=== PATIENT | male | born 1995 | race Caucasian/White ===

== ENCOUNTER → 2023-07-07 | Outpatient (REF) | LOC: M EMP 09:37 | PROVIDERS: ATTEND Family Medicine | DX: Z11.52 Encounter for screening for COVID-19 (principal) ==

== ENCOUNTER → 2024-02-29 | Outpatient (REF) | LOC: M EMP 07:58 | PROVIDERS: ATTEND Family Medicine | DX: Z11.52 Encounter for screening for COVID-19 (principal) ==

== ENCOUNTER → 2024-08-13 | Outpatient (REF) | payer BC ==
[2024-08-13 19:12] LABS: RSV AMPLIFICATION NEGATIVE (NEGATIVE)
== END ==
LOC: M LAB REF 17:33
PROVIDERS: ATTEND Physician Assistant Medical
DX: R52 Pain, unspecified (principal)

== ENCOUNTER → 2024-09-25 | Outpatient (CLI) | payer BC | LOC: M RAD 14:02 | PROVIDERS: ATTEND Physician Assistant Medical | DX: M25.531 Pain in right wrist (principal) ==

== ENCOUNTER 2025-03-10 16:27 | Emergency (ER) | payer BC ==
[~2025-03-10] VITALS: Ht 180.3 cm; Wt 91.1 kg
[2025-03-10] MEDS: IBUPROFEN 600 MG TAB PO ONE (17:35)
[2025-03-10 20:03] VITALS: BP 139/78; TEMP 98.2; O2SAT 98
== END 2025-03-10 20:01 | disposition left against medical advice (07) ==
LOC: M ED 16:27
DX: S02.401A Maxillary fracture, unspecified side, initial encounter for closed fracture (principal); Z53.9 Procedure and treatment not carried out, unspecified reason; Y04.8XXA Assault by other bodily force, initial encounter; Y92.481 Parking lot as the place of occurrence of the external cause; Y93.9 Activity, unspecified; Y99.9 Unspecified external cause status